=== PATIENT | male | born 1965 | race Caucasian/White ===

== ENCOUNTER → 2021-06-21 | Outpatient (CLI) | payer OTHER ==
[~2021-06-21] MED LIST: AMLODIPINE BESYL5 MG PO; ASPIRIN EC81 MG PO; ATORVASTATIN CA20 MG PO; CARVEDILOL12.5 MG PO; COZAAR 50MG TAB50 MG PO; ELIQUIS5 MG PO; HYDRALAZINE HCL50 MG PO; HYDROCHLOROTHIA25 MG PO
== END ==
LOC: HEART CORB 10:30
DX: N28.89 Other specified disorders of kidney and ureter (principal); I27.20 Pulmonary hypertension, unspecified; I08.1 Rheumatic disorders of both mitral and tricuspid valves
CPT/HCPCS: 93306